=== PATIENT | male | born 1960 | race Caucasian/White ===

== ENCOUNTER 2018-08-25 12:29 | Emergency (ER) | payer MEDICARE, MEDICAID ==
[~2018-08-25] VITALS: Ht 190.5 cm; Wt 117.2 kg
[2018-08-25 12:41] VITALS: BP 145/101
[2018-08-25] MEDS ORDERED: KETOROLAC 30 MG/1 ML IM ONE (13:30)
[2018-08-25] MEDS ORDERED: METHOCARBAMOL 750 MG TABLET PO ONE (13:30)
[2018-08-25] MEDS ORDERED: METHOCARBAMOL 750 MG TABLET ONE (13:31)
[2018-08-25] MEDS ORDERED: KETOROLAC 30 MG/1 ML ONE (13:31)
[2018-08-25] MEDS ORDERED: ASPI-515 PO (13:45)
[2018-08-25] MEDS ORDERED: CALC168T7 PO (13:46)
== END 2018-08-25 13:58 | disposition home or self-care (01) ==
LOC: ED 13:52
DX: G24.3 Spasmodic torticollis (principal); G89.29 Other chronic pain
CPT/HCPCS: 96372; 99283; J1885